=== PATIENT | female | born 1955 ===

== ENCOUNTER 2021-03-04 09:12 | Outpatient (CLI) | payer OTHER | END 2021-03-04 09:17 | disposition home or self-care (01) | LOC: TOM 09:12 | PROVIDERS: ATTEND Surgery | DX: K57.30 Diverticulosis of large intestine without perforation or abscess without bleeding (principal); R10.32 Left lower quadrant pain; R19.8 Other specified symptoms and signs involving the digestive system and abdomen; K58.1 Irritable bowel syndrome with constipation; K58.0 Irritable bowel syndrome with diarrhea ==